=== PATIENT | female | born 1995 | race African-American/Black ===

== ENCOUNTER 2017-05-26 14:38 | Emergency (ER) | payer BC, OTHER ==
[2017-05-26 14:50] VITALS: BP 123/76
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
== END 2017-05-26 16:00 | disposition home or self-care (01) ==
LOC: ER 14:38
DX: M24.411 Recurrent dislocation, right shoulder (principal)
CPT/HCPCS: 99283

== ENCOUNTER → 2017-07-06 | Outpatient (CLI) | payer BC ==
[2017-07-06 17:38] LABS: CHLAM PCR NOT DETECTED (NOT DETECT)
== END ==
LOC: LAB 15:46
PROVIDERS: ATTEND Nurse Practitioner Acute Care
DX: N89.8 Other specified noninflammatory disorders of vagina (principal); R30.0 Dysuria
CPT/HCPCS: 87086; 87088; 87186; 87210; 87491; 87591

== ENCOUNTER 2019-12-28 16:52 | Emergency (ER) | payer BC, MEDICAID ==
--- NOTE | 2019-12-28 17:28 | ER Document Report ---
ED Medical Screen (RME) - General Chief Complaint: Shoulder Injury Stated Complaint: POSSIBLE ARM INJURY Time Seen by Provider: 12/28/19 17:24 Primary Care Provider: THO JAMES NP [Primary Care Provider] - Follow up as needed TRAVEL OUTSIDE OF THE [place] IN LAST 30 DAYS: No - HPI Notes: 12/28/19 17:27 24-year-old female to the emergency department with complaints of left shoulder pain and likely dislocation that occurred just prior to arrival. She states she was laying down and when she rolled over that shoulder dislocated. She has a history of prior right shoulder dislocations but her left shoulder has never dislocated. She denies any other injuries. On brief medical screening exam. The left shoulder does indeed look dislocated with deformity to the shoulder joint. Left arm is longer than the right. Pulses are intact and equal. I performed a brief medical screening exam on the patient and determined that she will need further evaluation and management by me inside provider. I have initiated orders to help expedite her care. - Related Data Allergies/Adverse Reactions: No Known Allergies Allergy (Verified 05/26/17 14:47) Past Medical History - Social History Frequency of alcohol use: None Drug Abuse: None Renal/ Medical History: Denies: Hx Peritoneal Dialysis Musculoskeltal Medical History: Reports Hx Musculoskeletal Deformity - Recurrent shoulder dislocation of the right shoulder last one today., Reports Hx Musculoskeletal Trauma - Immunizations Hx Diphtheria, Pertussis, Tetanus Vaccination: Yes Doctor's Discharge - Discharge Referrals: THO JAMES NP [Primary Care Provider] - Follow up as needed
--- NOTE | 2019-12-28 17:55 | RADIOLOGY REPORT (SQ) ---
EXAM DESCRIPTION: SHOULDER LEFT 2 OR MORE VIEWS COMPLETED DATE/TIME: 12/28/2019 5:40 pm REASON FOR STUDY: shoulder deformity COMPARISON: None. NUMBER OF VIEWS: Three views. TECHNIQUE: Internal rotation, external rotation, and Y view images acquired of the left shoulder. LIMITATIONS: None. FINDINGS: MINERALIZATION: Normal. BONES: No acute fracture. No worrisome bone lesions. JOINTS: There is an anterior dislocation of the shoulder. VISUALIZED LUNGS AND RIBS: No pneumothorax. No rib fracture. SOFT TISSUES: No radiopaque foreign body. OTHER: No other significant finding. IMPRESSION: Anterior dislocation of the shoulder. No fracture. TECHNICAL DOCUMENTATION: JOB ID: [id number] [employer]- All Rights Reserved Reading location - IP/workstation name: [email or web address]
[2019-12-28] MEDS ORDERED: ONDANSETRON HCL INJ/PF 4 MG/2 ML SDV IV ONE (18:19)
[2019-12-28] MEDS ORDERED: MORPHINE SULFATE 10 MG/ML INJ IV ONE (18:19)
[2019-12-28] MEDS ORDERED: ETOMIDATE INJ/PF 20 MG/10 ML SDV IV ONE (21:17)
--- NOTE | 2019-12-28 21:19 | ER Document Report ---
ED General - General Chief Complaint: Shoulder Injury Stated Complaint: POSSIBLE ARM INJURY Time Seen by Provider: 12/28/19 17:24 Primary Care Provider: TERRY ALEJANDRO JR, DO [ACTIVE PROVISIONAL STAFF] - 12/31/19 (call Tuesday12/31/19 for follow up appointment) THO JAMES NP [NURSE PRACTITIONER] - Follow up as needed TRAVEL OUTSIDE OF THE [place] IN LAST 30 DAYS: No - HPI Notes: This is a 24-year-old female who presents complaining of left shoulder pain times approximately 5 hours. Patient states that she has a history of spontaneous your shoulder was dislocated today. This was reduced. Please wear the sling as needed for comfort. Follow-up with orthopedic surgery if you have recurrent shoulder dislocations. You should continue to take anti- inflammatories such as ibuprofen 600 mg every 6 hours for pain. Continue to apply ice to the area is much your able. Please return immediately if you develop weakness, numbness, spreading redness from the area, or any other symptoms that are concerning to you. On both sides. Patient states she was lying in bed, hard her baby crying and when she got up to check on the child, her left shoulder dislocated. Patient denies paresthesias in her left upper extremity. Patient states that when she has had the shoulder reduced in the past, they "use a bed sheet." - Related Data Allergies/Adverse Reactions: No Known Allergies Allergy (Verified 05/26/17 14:47) Past Medical History - Social History Smoking Status: Never Smoker Frequency of alcohol use: None Drug Abuse: None Family History: Reviewed & Not Pertinent. denies: Arthritis, CAD, COPD, CVA, DM, Hyperlipidemia, Hypertension, Malignancy, Thyroid Disfunction Patient has suicidal ideation: No Patient has homicidal ideation: No Renal/ Medical History: Denies: Hx Peritoneal Dialysis Musculoskeletal Medical History: Reports Hx Musculoskeletal Deformity - Recurrent shoulder dislocation of the right shoulder last one today., Reports Hx Musculoskeletal Trauma - Immunizations Hx Diphtheria, Pertussis, Tetanus Vaccination: Yes Review of Systems - Review of Systems Constitutional: No symptoms reported EENT: No symptoms reported Cardiovascular: No symptoms reported Respiratory: No symptoms reported Gastrointestinal: No symptoms reported Genitourinary: No symptoms reported Female Genitourinary: No symptoms reported Musculoskeletal: See HPI Skin: No symptoms reported Hematologic/Lymphatic: No symptoms reported Neurological/Psychological: No symptoms reported -: Yes All other systems reviewed and negative Physical Exam - Vital signs Vitals: Temp Pulse Resp BP Pulse Ox 98.4 F 87 16 135/82 H 100 12/28/19 17:26 12/28/19 17:26 12/28/19 17:26 12/28/19 17:26 12/28/19 17:26 - Notes Notes: PHYSICAL EXAMINATION: GENERAL: Well-appearing, well-nourished and in no acute distress. HEAD: Atraumatic, normocephalic. EYES: Pupils equal round and reactive to light, extraocular movements intact, sclera anicteric, conjunctiva are normal. ENT: nares patent, oropharynx clear without exudates. Moist mucous membranes. NECK: Normal range of motion, supple without lymphadenopathy LUNGS: Breath sounds clear to auscultation bilaterally and equal. No wheezes rales or rhonchi. HEART: Regular rate and rhythm without murmurs ABDOMEN: Soft, nontender, normoactive bowel sounds. No guarding, no rebound. No masses appreciated. EXTREMITIES: Left upper extremity: Significant for left anterior fullness in the deltoid region. Patient states she is unable to move her left upper extremity. Radial pulses 2+ in her left upper extremity. Patient is able to move all 5 digits in her left hand, patient denies paresthesias and states she is able to feel palpation of her left digits. NEUROLOGICAL: No focal neurological deficits. Moves all extremities spontaneously and on command. PSYCH: Normal mood, normal affect. SKIN: Warm, Dry, normal turgor, no rashes or lesions noted. Course - Re-evaluation Re-evalutation: 12/28/19 21:24 Differential diagnosis: Shoulder dislocation, humerus fracture, clavicle fracture 12/28/19 23:45 Results of ED MSE, shoulder reduction, postreduction films discussed with patient. All questions were answered. Emergency signs and symptoms, reasons to return to the emergency department discussed with patient. - Vital Signs Vital signs: Temp Pulse Resp BP Pulse Ox 98.4 F 63 13 133/80 H 100 12/28/19 17:26 12/28/19 23:30 12/28/19 23:30 12/28/19 23:30 12/28/19 23:30 - Diagnostic Test Radiology reviewed: Reports reviewed Procedures - Conscious Sedation Conscious sedation Time started: 23:20 Time completed: 23:35 Consent obtained: Yes Indication: left anterior shoulder dislocation Last meal: greater than six hours Prior complications: Other - no h/o prior complications Normal healthy pt.: P1. - ASA Classification Airway Evaluation: Normal anatomy Mallampati Classification: Class 1 Used during procedure: Suction available, IV access obtained, Pulse ox on pt., marketing operations specialist on pt. Medications administered: Etomidate Reversal agents: None I personally performed/intraservice time: Sedation, Procedure, 30 min or less Complications: No - Joint Reduction/Fracture Care Left Shoulder Time completed: 23:35 Consent obtained: Yes Conscious sedation: Yes Pre-procedure NV exam: Yes - radial pulse 2+, sensation and motor intact in all digits Fracture: Other - no fracture Manipulation comment: traction/countertraction Post-procedure NV exam: Yes - radial pulse 2+, sensation and motor remains intact in all digits Post-reduction x-ray: Joint reduced Reduction attempts: 1 - successful Complications: No Discharge - Discharge Clinical Impression: Anterior dislocation of left shoulder Qualifiers: Encounter type: initial encounter Qualified Code(s): S43.015A - Anterior dislocation of left humerus, initial encounter Condition: Good Disposition: HOME, SELF-CARE Instructions: Oral Narcotic Medication ([facility]), Shoulder Dislocation ([facility]) Additional Instructions: Return to the Emergency Department without delay if any worse. HOME CARE INSTRUCTIONS & INFORMATION: Thank you for choosing us for your medical needs. We hope you're satisfied with the care you received. After you leave, you must properly care for your problem and, at the same time, observe its progress. Any condition can change. Some illnesses can change rapidly over hours or days. If your condition worsens, return to the Emergency Department or see your physician promptly. ABOUT YOUR X-RAYS AND EKG'S: If you had an EKG or X-rays taken, they have been read by the Emergency Physician. The X-rays and EKG's will also be read by a Radiologist or Stock Sorter within 24 hours. If discrepancies are noted, you will be notified by telephone. Please be certain the ED has a correct telephone number & address where you can be reached. Also, realize that some fractures or abnormalities do not show up on initial X-rays. If your symptoms continue, see your physician. ABOUT YOUR LABORATORY TEST: If you had laboratory tests, the results have been reviewed by the Emergency Physician. Some test results (for example cultures) may not be available for several days. You will be contacted if any test result shows you need additional treatment. Please be certain the ED has a correct telephone number and address where you can be reached. ABOUT YOUR MEDICATIONS: You will receive instructions on how to take your medicine on the prescription label you receive. Additional information may be provided by the Pharmacy. If you have questions afterwards, call the ED for clarification or further instructions. Some prescribed medications may cause drowsiness. Do not perform tasks such as driving a car or operating machinery without consulting your Pharmacist. If you feel you need a refill of pain medication, your condition will need re-evaluation. Please do not call for a refill of any medication. ABOUT YOUR SIGNATURE: Signature of this document acknowledges to followin. Understanding that you received emergency treatment and that you may be released before al medical problems are known or treated. Please be certain the ED has a correct phone number & address where you can be reached. 2. Acknowledgement that you will arrange for follow-up care as recommended. 3. Authorization for the Emergency Physician to provide information to your follow-up Physician in order to maximize your care. AT ANY TIME, IF YOUR SYMPTOMS CHANGE SIGNIFICANTLY OR WORSEN OR YOU DEVELOP NEW SYMPTOMS, RETURN TO THE EMERGENCY DEPARTMENT IMMEDIATELY FOR RE-EVALUATION. OUR GOAL IS TO PROVIDE EXCELLENT MEDICAL CARE! WE HOPE THAT WE HAVE MET YOUR EXPECTATIONS DURING YOUR EMERGENCY DEPARTMENT VISIT AND THAT YOU FEEL YOU HAVE RECEIVED EXCELLENT CARE! Prescriptions: Hydrocodone/Acetaminophen [Everetts 5-325 mg Tablet] 1 tab PO Q6HP PRN #15 tablet PRN Reason: severe pain Referrals: THO JAMES NP [NURSE PRACTITIONER] - Follow up as needed TERRY ALEJANDRO JR, DO [ACTIVE PROVISIONAL STAFF] - 12/31/19 (call Tuesday12/31/19 for follow up appointment)
[2019-12-28] MEDS ORDERED: HYDROCODONE/ACETAMINOPHEN 5-325 MG (6 TAB/ER DISP) PO PRN (23:45)
--- NOTE | 2019-12-28 23:58 | RADIOLOGY REPORT (SQ) ---
2 VIEWS OF LEFT SHOULDER EXAM DATE: 12/28/2019 12:00 AM SAWMILL TALLY CLERK HISTORY: Shoulder dislocation. COMPARISON: Radiographs from earlier the same day. FINDINGS: There has been interval reduction of the anterior glenohumeral dislocation. No definite fracture fragment is seen. IMPRESSION: Successful reduction of anterior shoulder dislocation.
[2019-12-29 00:50] VITALS: BP 138/67
== END 2019-12-29 00:50 | disposition home or self-care (01) ==
LOC: ER 16:52
DX: S43.015A Anterior dislocation of left humerus, initial encounter (principal); X58.XXXA Exposure to other specified factors, initial encounter
CPT/HCPCS: 99283; 99152; 96374; 96375; 73030; 23650; J2270; J2405; J3490